=== PATIENT | male | born 1970 | race Caucasian/White ===

== ENCOUNTER 2020-02-23 08:53 | Emergency (ER) | payer SELFPAY ==
[~2020-02-23] VITALS: Ht 175.2 cm; Wt 95.3 kg
[~2020-02-23 08:53] MED LIST: ANAPROX DS550 MG PO; COMPAZINE10 MG PO; DARVOCET N 1001 TAB PO; LOPRESSOR25 MG PO; LOPRESSOR50 MG PO; MOTRIN800 MG PO; NEXIUM20 MG PO; ZANTAC150 MG PO; ZESTRIL,PRINIVI20 MG PO
[2020-02-23 09:51] LABS: BASO % 0.4 % (0.0-1.0); EOS # 0.1 10*3/uL (0.0-0.4); EOS % 0.6 % (1.0-4.0); HEMATOCRIT 47.9 % (42.0-52.0); LYMPH # 1.3 10*3/uL (1.3-4.4); MEAN CELL VOLUME 95.4 fl (80.0-94.0); MEAN CORPUSCULAR HGB 33.9 pg (27.0-31.0); MEAN CORPUSCULAR HGB CONC 35.5 g/dl (33.0-37.0); MEAN PLATELET VOLUME 9.7 fl (9.6-12.3); MONO # 0.5 10*3/uL (0.1-1.0); MONO % 4.4 % (3.0-9.0); NEUT # 8.7 10*3/uL (2.3-7.9); NEUT % 82.2 % (47.0-73.0); PLATELET COUNT AUTOMATED 244 10*3/uL (130-400); RED BLOOD COUNT 5.02 10*6/uL (4.50-5.90); RED CELL DISTRI WIDTH 11.8 % (0-14.5); WHITE BLOOD COUNT 10.5 10*3/uL (4.8-10.8)
[2020-02-23 10:03] LABS: ACT PARTIAL THROMBO TIME 28.3 SECONDS (20.0-32.1)
[2020-02-23 10:06] LABS: ALBUMIN 3.7 gm/dl (3.1-4.5); ALKALINE PHOSPHATASE 77 U/L (45-117); BUN 13 mg/dl (7-24); CHLORIDE 104 mmol/L (98-107); LIPASE 173 U/L (73-393); SGOT/AST 33 IU/L (3-35); SGPT/ALT 59 U/L (12-78); SODIUM 137 mmol/L (136-145); TOTAL PROTEIN 7.5 gm/dL (6.4-8.2)
[2020-02-23 10:07] LABS: TROPONIN I < 0.015 ng/ml (<0.045)
[2020-02-23] MEDS ORDERED: ZOFRAN4 MG PO (10:47)
== END 2020-02-23 11:51 | disposition home or self-care (01) ==
LOC: ED 08:53
PROVIDERS: Emergency Medicine
DX: K52.9 Noninfective gastroenteritis and colitis, unspecified (principal); K42.9 Umbilical hernia without obstruction or gangrene; I10 Essential (primary) hypertension; F17.200 Nicotine dependence, unspecified, uncomplicated; Z88.6 Allergy status to analgesic agent; Z79.899 Other long term (current) drug therapy